=== PATIENT | female | born 1945 | race Caucasian/White ===

== ENCOUNTER 2016-09-06 18:54 | Emergency (ER) | payer MEDICARE ==
[2016-09-06] MEDS ORDERED: predniSONE 20 MG TAB ONE (19:40)
[2016-09-06] MEDS ORDERED: Benzonatate 100 MG CAP ONE (19:40)
[2016-09-06] MEDS ORDERED: AMOXicillin 250 MG CAP ONE (19:40)
--- NOTE | 2016-09-06 20:12 | ERRECORD ---
[facility] EMERGENCY RECORD HPI COUGH (19:45 LLDO) CHIEF COMPLAINT: Patient presents for evaluation of cough, non-productive, Patient presents for evaluation of cough, headache, scratchy throat. no fever. the headache is the worst of the pain. all started today, worsening as the day has progressed. HISTORIAN: History provided by patient, History provided by patient's spouse. LOCATION: Symptoms are generalized. QUALITY: Denies tightness, Denies wheezing, Pain is dull in nature, described as aching. SEVERITY: Maximum severity of symptoms severe, Currently symptoms are moderate. TIME COURSE: Sudden onset of symptoms, Symptoms are worsening, are constant. ASSOCIATED WITH: Associated symptoms reviewed, No associated chest pain, No associated chills, No associated diarrhea, No associated diaphoresis, Associated with dyspnea on exertion, No associated fever, Associated with nausea, Associated with pleuritic symptoms, No associated stridor, Associated with upper respiratory infection, No associated wheezing, Associated with weakness. EXACERBATED BY: Patient's condition exacerbated by deep breaths, Patient's condition exacerbated by exercise, Patient's condition exacerbated by lying flat, Patient's condition not exacerbated by smoking. RELIEVED BY: Patient's condition relieved by rest, Patient's condition relieved by upright position. ROS CONSTITUTIONAL: Negative constitutional review of systems, Historian reports fatigue, denies fever, reports malaise, reports weakness. (19:48 LLDO) EYES: Negative eye review of systems, Historian denies eye pain, denies eye redness, denies eye discharge. (19:54 LLDO) ENT: Historian reports sore throat. (19:48 LLDO) CARDIOVASCULAR: Historian reports dyspnea on exertion. (19:48 LLDO) RESPIRATORY: Historian reports cough, denies shortness of breath, denies sputum, denies stridor, denies wheezing. (19:48 LLDO) GI: Historian reports anorexia, reports appetite changes, reports nausea. (19:48 LLDO) GENITOURINARY FEMALE: Negative genitourinary review of systems, Historian denies dysuria, denies frequency, denies urgency. (19:54 LLDO) MUSCULOSKELETAL: Historian reports myalgias. (19:48 LLDO) SKIN: Negative skin review of systems, Historian denies cellulitis, denies rash, denies skin changes, denies skin lesions. (19:54 LLDO) NEUROLOGIC: Historian denies confusion, denies dizziness, denies &a-1R&a+25V*p+0X*[id number]*c202B*c15G*c2P*p-0X&a-25V&a+1R Name: Rachelle Flores : 1945 F70 MedRec: [id number] AcctNum: [id number] Prepared: Kay Sep 06, 2016 19:55 by Interface Page 1 of 4 pMD [facility] EMERGENCY RECORD dysphasia, denies focal weakness, denies gait changes, reports headache, denies irritability, denies lethargy, denies mental status changes. (19:48 LLDO) HEMO/LYMPHATIC: Normal hematologic/lymphatic system review, Historian denies abnormal blood clotting, denies gum bleeding, denies petechiae. (19:54 LLDO) ALLERGIC/IMMUNOLOGIC: Normal allergy/immunologic system review, Historian denies eczema, denies environmental allergies, denies food allergies. (19:54 LLDO) PSYCHIATRIC: Negative psychiatric review of systems, Historian denies alcohol abuse, denies anxiety, denies depression, denies drug abuse, denies hallucinations. (19:54 LLDO) NOTES: All systems reviewed, negative except as described above. (19:48 LLDO) PAST MEDICAL HISTORY MEDICAL HISTORY: No past medical history, Flu vaccine up to date, Pneumococcal vaccine up to date, Past medical history includes history of hyperlipidemia, history of hypertension. (19:06 SFRE) FEMALE SURGICAL HISTORY: multiple colon surgeries, hernias,, Surgical history of orthopedic surgery, right rotator cuff. (19:09 SFRE) PSYCHIATRIC HISTORY: No previous psychiatric history. (19:06 SFRE) SOCIAL HISTORY: Patient denies alcohol use, Patient denies drug use, Patient currently uses tobacco, smokes cigarettes. (19:06 SFRE) NOTES: Nursing records reviewed, Agree with nursing records, Medication list reviewed. (19:54 LLDO) KNOWN ALLERGIES Iodine (Unconfirmed) No Known Allergies CURRENT MEDICATIONS No recorded medications VITAL SIGNS (19:01 SFRE) VITAL SIGNS: BP: 148/75, Pulse: 79, Resp: 18, Temp: 98.8 (Tympanic), Pain: 9 (Intermittent), O2 sat: 97 on Room Air, Time: 09/06/2016 19:01. PHYSICAL EXAM CONSTITUTIONAL: Vital Signs Reviewed, Patient afebrile, Pulse normal, Blood pressure normal, Respiratory rate normal, Normal pulse oximetry, Patient appears, uncomfortable, Patient appears, in moderate pain distress, Patient alert and oriented to person, place and time, Nursing notes reviewed. (19:51 LLDO) &a-1R&a+25V*p+0X*[id number]*c202B*c15G*c2P*p-0X&a-25V&a+1R Name: Rachelle Flores : 1945 F70 MedRec: [id number] AcctNum: [id number] Prepared: Kay Sep 06, 2016 19:55 by Interface Page 2 of 4 pMD [facility] EMERGENCY RECORD HEAD: Head exam normal, Head exam included findings of head atraumatic, normocephalic. (19:54 LLDO) EYES: Eye exam normal, Eye exam included findings of eyelids normal to inspection, Pupils equally round and reactive to light, Extraocular muscles intact. (19:54 LLDO) ENT: Ear exam normal, Nose exam normal, Pharynx, injected bilaterally, with swelling bilaterally, symmetrical, Uvula exam normal, Sinus exam included findings of frontal sinuses normal, maxillary sinuses normal. (19:51 LLDO) NECK: Neck exam included findings of normal range of motion, Trachea midline, Thyroid normal, no meningeal signs, Cervical adenopathy, diffuse, multiple nodes, tender, swollen. (19:51 LLDO) RESPIRATORY CHEST: Respiratory exam included findings of no respiratory distress, No wheezing, Rales present, Chest exam included findings of chest movement symmetrical, Chest expansion equal, no tenderness, RALES MOD AND SCATTERED. (19:51 LLDO) CARDIOVASCULAR: Femoral pulses. (19:51 LLDO) ABDOMEN FEMALE: Abdominal exam normal, Abdominal exam included findings of abdomen nontender, Bowel sounds normal, no peritoneal signs. (19:54 LLDO) BACK: Back exam normal, Back exam included findings of normal inspection, range of motion normal. (19:54 LLDO) UPPER EXTREMITY: Upper extremity exam normal, Upper extremity exam included findings of inspection normal, Range of motion normal. (19:54 LLDO) LOWER EXTREMITY: Lower extremity exam normal, Lower extremity exam included findings of inspection normal, Range of motion normal. (19:54 LLDO) NEURO: [place] coma scale 15, Neuro exam findings include patient oriented to person, place and time, Speech normal, Gait normal, Memory normal, Cranial nerves intact, Deep tendon reflexes normal, no focal motor deficits, no focal sensory deficits, no cerebellar deficits, no nystagmus. (19:51 LLDO) SKIN: Skin exam normal, Skin exam included findings of skin warm, dry, and normal in color, no rash. (19:54 LLDO) PSYCHIATRIC: Psychiatric exam normal, Psychiatric exam included findings of patient oriented to person place and time, Normal affect. (19:54 LLDO) MEDICATION ADMINISTRATION SUMMARY Drug Name: *acetaminophen-codeine, Dose Ordered: 2 tab(s), Route: Oral, Status: Canceled, Time: 19:50 09/06/2016, Drug Name: Tessalon Perles, Dose Ordered: 200 mg, Route: Oral, Status: Given, Time: 19:44 09/06/2016, Drug Name: amoxicillin, Dose Ordered: 500 mg, Route: Oral, Status: Given, Time: 19:43 09/06/2016, Drug Name: predniSONE oral, Dose Ordered: 40 mg, Route: Oral, Status: Given, Time: 19:43 09/06/2016, *Additional information available in &a-1R&a+25V*p+0X*[id number]*c202B*c15G*c2P*p-0X&a-25V&a+1R Name: Rachelle Flores : 1945 F70 MedRec: [id number] AcctNum: [id number] Prepared: Kay Sep 06, 2016 19:55 by Interface Page 3 of 4 pMD [facility] EMERGENCY RECORD notes, Detailed record available in Medication Service section. PROBLEM LIST No recorded problems DIAGNOSIS (19:39 LLDO) FINAL: PRIMARY: Acute bronchitis. PRESCRIPTION predniSONE oral: TABLET : 20 mg : ORAL : Quantity: 1 Unit: tab(s) Route: ORAL Schedule: once a day (in the morning) Dispense: 6 May substitute. Refills: No Refills . (19:40 LLDO) NOTES: No Refills. (19:40 LLDO) amoxicillin: CAPSULE (HARD, SOFT, ETC.) : 500 mg : ORAL : Quantity: 1 Unit: cap(s) Route: ORAL Schedule: 3 times a day Dispense: 30 May substitute. Refills: No Refills . (19:40 LLDO) NOTES: ^s=No Refills No Refills. (19:40 LLDO) Phenergan DM: SYRUP : : ORAL : Quantity: 1 Unit: teaspoon Route: ORAL Schedule: every 4 hours prn Dispense: 180 Unit: mL May substitute. Refills: No Refills . (19:40 LLDO) NOTES: ^s=^s=No Refills No Refills No Refills. (19:40 LLDO) Tylenol-Codeine #3: TABLET : 300 mg-30 mg : ORAL : Quantity: 1-2 Unit: tab(s) Route: ORAL Schedule: every 4 hours prn Dispense: 24 Unit: tab(s) May substitute. Refills: No Refills . (19:43 LLDO) NOTES: No Refills. (19:43 LLDO) DISPOSITION PATIENT: Disposition Type: Discharge, Disposition: *Discharge Home. (19:39 LLDO) Patient left the department. (19:53 SFRE) Valles: LLDO=MD Jong, Juan José SFRE=LUIS Amezquita, Rossana &a-1R&a+25V*p+0X*[id number]*c202B*c15G*c2P*p-0X&a-25V&a+1R Name: Rachelle Flores : 1945 F70 MedRec: [id number] AcctNum: [id number] Prepared: Kay Sep 06, 2016 19:55 by Interface Page 4 of 4 pMD MTDD
--- NOTE | 2016-09-06 20:20 | PICIS ---
[facility] EMERGENCY RECORD TRIAGE ([place] Sep 06, 2016 19:04 SFRE) TRIAGE NOTES: COUGH WITH HEADACHE FROM COUGHING. ([place] Sep 06, 2016 19:04 SFRE) PATIENT: NAME: Rachelle Flores, AGE: 70, GENDER: female, : Wed1945, TIME OF GREET: WedSep 06, 2016 18:56, PREFERRED LANGUAGE: Guatemalan, ETHNICITY: Not or , ECODE BILLING MAP: [facility], SSN: [id number], Zip Code: [address], KG WEIGHT: 92.08, PHONE: , , , PERSON ID: [id number], PCP: BRYAN LAWRENCE. ([place] Sep 06, 2016 19:04 SFRE) COMPLAINT: COUGH,HEADACHE. ([place] Sep 06, 2016 19:04 SFRE) ADMISSION: URGENCY: 5 Fast Track, ADMISSION SOURCE: Home, TRANSPORT: Walk-in, BED: ED -04. ([place] Sep 06, 2016 19:04 SFRE) SIRS SCORING: Heart Rate 55-109 (0), Temp range 96.8-101.1 (0), respiratory rate 12-24 (0), Mental Status altered: no (0). (19:06 SFRE) TRIAGE SCREENING: Patient denies suicidal ideation, Patient denies presence of domestic violence. (19:06 SFRE) PROVIDERS: TRIAGE NURSE: Rossana Amezquita RN. ([place] Sep 06, 2016 19:04 SFRE) VITAL SIGNS: BP 148/75, Pulse 79, Resp 18, Temp 98.8, (Tympanic), Pain 9, (Intermittent), O2 Sat 97, on Room Air, Time 09/06/2016 19:01. (19:01 SFRE) PREVIOUS VISIT ALLERGIES: No Known Allergies. ([place] Sep 06, 2016 19:04 SFRE) No Known Allergies. (19:06 SFRE) KNOWN ALLERGIES Iodine (Unconfirmed) No Known Allergies CURRENT MEDICATIONS No recorded medications VITAL SIGNS (19:01 SFRE) VITAL SIGNS: BP: 148/75, Pulse: 79, Resp: 18, Temp: 98.8 (Tympanic), Pain: 9 (Intermittent), O2 sat: 97 on Room Air, Time: 09/06/2016 19:01. NURSING ASSESSMENT: ENT (19:16 SFRE) CONSTITUTIONAL: Patient arrives ambulatory, Gait steady, History obtained from patient, Patient appears comfortable, Patient cooperative, Patient alert, Oriented to person, place and time, Skin warm, Skin dry, Skin normal in color, Mucous membranes pink, Mucous membranes moist, Patient is well-groomed, Patient complains of cough. PAIN: aching pain, head, constant, on a scale 0-10 patient rates pain as 9, reports she did not take anything for kline because she knew it was caused by her cough, Pain exacerbated by nothing, Nothing has been tried to alleviate the pain. &a-1R&a+25V*p+0X*p4038Q*c202B*c15G*c2P*p-0X&a-25V&a+1R Name: Rachelle Flores : 1945 F70 MedRec: [id number] AcctNum: [id number] Prepared: Kay Sep 06, 2016 20:01 by Interface Page 1 of 7 pMD [facility] EMERGENCY RECORD ENT: Mouth and throat assessment findings include mouth inspection normal, Uvula normal, Tonsils normal, Mucous membranes pink, and moist, Able to swallow, Speech normal. RESPIRATORY/CHEST: Associated with cough, non-productive. SAFETY: Side rails up, Cart/Stretcher in lowest position, Family at bedside, Call light within reach, Hospital ID band on. NURSING PROCEDURE: DISCHARGE NOTE (19:51 SFRE) DISCHARGE: Patient discharged to home, ambulating without assistance, driving self, accompanied by //partner, Summary of Care printed/ provided, Patient requested and was provided an electronic copy of Discharge Instructions, Discharge instructions given to patient, Simple or moderate discharge teaching performed, by LUIS VANESSA, F/U WITH PCP. RX DIRECTED. RETURN TO ED NEEDED FOR NEW/CONCERNING OR WORSENING SYMPTOMS., Prescriptions given and instructions on side effects given, Name of prescription(s) given: PREDNISONE, AMOXICILLIN, PHENERGAN SYRUP, Above person(s) verbalized understanding of discharge instructions and follow-up care. NURSING PROCEDURE: NURSE NOTES (19:30 SFRE) NURSES NOTES: Patient examined by physician. MEDICATION ADMINISTRATION SUMMARY Drug Name: *acetaminophen-codeine, Dose Ordered: 2 tab(s), Route: Oral, Status: Canceled, Time: 19:50 09/06/2016, Drug Name: Huyen Goddard, Dose Ordered: 200 mg, Route: Oral, Status: Given, Time: 19:44 09/06/2016, Drug Name: amoxicillin, Dose Ordered: 500 mg, Route: Oral, Status: Given, Time: 19:43 09/06/2016, Drug Name: predniSONE oral, Dose Ordered: 40 mg, Route: Oral, Status: Given, Time: 19:43 09/06/2016, *Additional information available in notes, Detailed record available in Medication Service section. MEDICATION SERVICE amoxicillin: Order: amoxicillin (amoxicillin trihydrate) - Dose: 500 mg : Oral Schedule: Now Ordered by: Juan José Sunshine MD Entered by: MD Kay Galloway Sep 06, 2016 19:36 , Acknowledged by: LUIS Duran Sep 06, 2016 19:39 Documented as given by: LUIS Duran Sep 06, 2016 19:43 Patient, Medication, Dose, Route and Time verified prior to administration. Amount given: 500mg, Site: Medication administered P.O., Correct patient, time, route, dose and medication confirmed prior to administration, Patient advised of actions and side-effects prior to administration, Allergies confirmed and medications reviewed prior to &a-1R&a+25V*p+0X*k3175C*c202B*c15G*c2P*p-0X&a-25V&a+1R Name: Rachelle lFores : 1945 F70 MedRec: [id number] AcctNum: [id number] Prepared: Kay Sep 06, 2016 20:01 by Interface Page 2 of 7 pMD [facility] EMERGENCY RECORD administration, Patient in position of comfort, Side rails up, Cart in lowest position, Family at bedside. predniSONE oral: Order: predniSONE oral (prednisone) - Dose: 40 mg : Oral Schedule: Now Ordered by: Juan José Sunshine MD Entered by: MD Kay Galloway Sep 06, 2016 19:37 , Acknowledged by: LUIS Duran Sep 06, 2016 19:39 Documented as given by: LUIS Duran Sep 06, 2016 19:43 Patient, Medication, Dose, Route and Time verified prior to administration. Amount given: 40mg, Site: Medication administered P.O., Correct patient, time, route, dose and medication confirmed prior to administration, Patient advised of actions and side-effects prior to administration, Allergies confirmed and medications reviewed prior to administration, Patient in position of comfort, Side rails up, Cart in lowest position, Family at bedside. Tessalon Perles: Order: Tessalon Perles (benzonatate) - Dose: 200 mg : Oral Schedule: Now Ordered by: Juan José Sunshine MD Entered by: Juan José Sunshine MD [place] Sep 06, 2016 19:36 , Acknowledged by: Rossana Amezquita RN [place] Sep 06, 2016 19:39 Documented as given by: Rossana Amezquita RN [place] Sep 06, 2016 19:44 Patient, Medication, Dose, Route and Time verified prior to administration. Amount given: 200mg, Site: Medication administered P.O., Correct patient, time, route, dose and medication confirmed prior to administration, Patient advised of actions and side-effects prior to administration, Allergies confirmed and medications reviewed prior to administration, Patient in position of comfort, Side rails up, Cart in lowest position, Family at bedside. (CANCELED) acetaminophen-codeine: Order: acetaminophen-codeine (acetaminophen/codeine phosphate) - Dose: 2 tab(s) : Oral Schedule: Now Notes: each tab 30-300 Ordered by: Juan José Sunshine MD Entered by: Juan José Sunshine MD [place] Sep 06, 2016 19:42 Canceled by: Rossana Amezquita RN. [place] Sep 06, 2016 19:50 Cancel reason: DC'D HOME BEFORE RX WAS SEEN. HPI COUGH (19:45 LLDO) CHIEF COMPLAINT: Patient presents for evaluation of cough, non-productive, Patient presents for evaluation of cough, headache, scratchy throat. no fever. the headache is the worst of the pain. all started today, worsening as the day has progressed. HISTORIAN: History provided by patient, History provided by patient's spouse. LOCATION: Symptoms are generalized. QUALITY: Denies tightness, Denies wheezing, Pain is dull in nature, &a-1R&a+25V*p+0X*r4340G*c202B*c15G*c2P*p-0X&a-25V&a+1R Name: Rachelle Flores: 1945 F70 MedRec: [id number] AcctNum: [id number] Prepared: Kay Sep 06, 2016 20:01 by Interface Page 3 of 7 pMD [facility] EMERGENCY RECORD described as aching. SEVERITY: Maximum severity of symptoms severe, Currently symptoms are moderate. TIME COURSE: Sudden onset of symptoms, Symptoms are worsening, are constant. ASSOCIATED WITH: Associated symptoms reviewed, No associated chest pain, No associated chills, No associated diarrhea, No associated diaphoresis, Associated with dyspnea on exertion, No associated fever, Associated with nausea, Associated with pleuritic symptoms, No associated stridor, Associated with upper respiratory infection, No associated wheezing, Associated with weakness. EXACERBATED BY: Patient's condition exacerbated by deep breaths, Patient's condition exacerbated by exercise, Patient's condition exacerbated by lying flat, Patient's condition not exacerbated by smoking. RELIEVED BY: Patient's condition relieved by rest, Patient's condition relieved by upright position. ROS CONSTITUTIONAL: Negative constitutional review of systems, Historian reports fatigue, denies fever, reports malaise, reports weakness. (19:48 LLDO) EYES: Negative eye review of systems, Historian denies eye pain, denies eye redness, denies eye discharge. (19:54 LLDO) ENT: Historian reports sore throat. (19:48 LLDO) CARDIOVASCULAR: Historian reports dyspnea on exertion. (19:48 LLDO) RESPIRATORY: Historian reports cough, denies shortness of breath, denies sputum, denies stridor, denies wheezing. (19:48 LLDO) GI: Historian reports anorexia, reports appetite changes, reports nausea. (19:48 LLDO) GENITOURINARY FEMALE: Negative genitourinary review of systems, Historian denies dysuria, denies frequency, denies urgency. (19:54 LLDO) MUSCULOSKELETAL: Historian reports myalgias. (19:48 LLDO) SKIN: Negative skin review of systems, Historian denies cellulitis, denies rash, denies skin changes, denies skin lesions. (19:54 LLDO) NEUROLOGIC: Historian denies confusion, denies dizziness, denies dysphasia, denies focal weakness, denies gait changes, reports headache, denies irritability, denies lethargy, denies mental status changes. (19:48 LLDO) HEMO/LYMPHATIC: Normal hematologic/lymphatic system review, Historian denies abnormal blood clotting, denies gum bleeding, denies petechiae. (19:54 LLDO) ALLERGIC/IMMUNOLOGIC: Normal allergy/immunologic system review, Historian denies eczema, denies environmental allergies, denies food allergies. (19:54 LLDO) &a-1R&a+25V*p+0X*g6262C*c202B*c15G*c2P*p-0X&a-25V&a+1R Name: Rachelle Flores : 1945 F70 MedRec: [id number] AcctNum: [id number] Prepared: Kay Sep 06, 2016 20:01 by Interface Page 4 of 7 pMD [facility] EMERGENCY RECORD PSYCHIATRIC: Negative psychiatric review of systems, Historian denies alcohol abuse, denies anxiety, denies depression, denies drug abuse, denies hallucinations. (19:54 LLDO) NOTES: All systems reviewed, negative except as described above. (19:48 LLDO) PAST MEDICAL HISTORY MEDICAL HISTORY: No past medical history, Flu vaccine up to date, Pneumococcal vaccine up to date, Past medical history includes history of hyperlipidemia, history of hypertension. (19:06 SFRE) FEMALE SURGICAL HISTORY: multiple colon surgeries, hernias,, Surgical history of orthopedic surgery, right rotator cuff. (19:09 SFRE) PSYCHIATRIC HISTORY: No previous psychiatric history. (19:06 SFRE) SOCIAL HISTORY: Patient denies alcohol use, Patient denies drug use, Patient currently uses tobacco, smokes cigarettes. (19:06 SFRE) NOTES: Nursing records reviewed, Agree with nursing records, Medication list reviewed. (19:54 LLDO) PHYSICAL EXAM CONSTITUTIONAL: Vital Signs Reviewed, Patient afebrile, Pulse normal, Blood pressure normal, Respiratory rate normal, Normal pulse oximetry, Patient appears, uncomfortable, Patient appears, in moderate pain distress, Patient alert and oriented to person, place and time, Nursing notes reviewed. (19:51 LLDO) HEAD: Head exam normal, Head exam included findings of head atraumatic, normocephalic. (19:54 LLDO) EYES: Eye exam normal, Eye exam included findings of eyelids normal to inspection, Pupils equally round and reactive to light, Extraocular muscles intact. (19:54 LLDO) ENT: Ear exam normal, Nose exam normal, Pharynx, injected bilaterally, with swelling bilaterally, symmetrical, Uvula exam normal, Sinus exam included findings of frontal sinuses normal, maxillary sinuses normal. (19:51 LLDO) NECK: Neck exam included findings of normal range of motion, Trachea midline, Thyroid normal, no meningeal signs, Cervical adenopathy, diffuse, multiple nodes, tender, swollen. (19:51 LLDO) RESPIRATORY CHEST: Respiratory exam included findings of no respiratory distress, No wheezing, Rales present, Chest exam included findings of chest movement symmetrical, Chest expansion equal, no tenderness, RALES MOD AND SCATTERED. (19:51 LLDO) CARDIOVASCULAR: Femoral pulses. (19:51 LLDO) ABDOMEN FEMALE: Abdominal exam normal, Abdominal exam included findings of abdomen nontender, Bowel sounds normal, no peritoneal signs. (19:54 LLDO) &a-1R&a+25V*p+0X*k8694C*c202B*c15G*c2P*p-0X&a-25V&a+1R Name: Rachelle Flores : 1945 F70 MedRec: [id number] AcctNum: [id number] Prepared: Kay Sep 06, 2016 20:01 by Interface Page 5 of 7 pMD [facility] EMERGENCY RECORD BACK: Back exam normal, Back exam included findings of normal inspection, range of motion normal. (19:54 LLDO) UPPER EXTREMITY: Upper extremity exam normal, Upper extremity exam included findings of inspection normal, Range of motion normal. (19:54 LLDO) LOWER EXTREMITY: Lower extremity exam normal, Lower extremity exam included findings of inspection normal, Range of motion normal. (19:54 LLDO) NEURO: [place] coma scale 15, Neuro exam findings include patient oriented to person, place and time, Speech normal, Gait normal, Memory normal, Cranial nerves intact, Deep tendon reflexes normal, no focal motor deficits, no focal sensory deficits, no cerebellar deficits, no nystagmus. (19:51 LLDO) SKIN: Skin exam normal, Skin exam included findings of skin warm, dry, and normal in color, no rash. (19:54 LLDO) PSYCHIATRIC: Psychiatric exam normal, Psychiatric exam included findings of patient oriented to person place and time, Normal affect. (19:54 LLDO) EVENTS TRANSFER: Triage to Emergency Main ED -04. ([place] Sep 06, 2016 19:04 SFRE) Removed from Emergency Main ED -04. (19:53 SFRE) PROBLEM LIST No recorded problems DIAGNOSIS (19:39 LLDO) FINAL: PRIMARY: Acute bronchitis. DISPOSITION PATIENT: Disposition Type: Discharge, Disposition: *Discharge Home. (19:39 LLDO) Patient left the department. (19:53 SFRE) INSTRUCTION (19:41 LLDO) DISCHARGE: BRONCHITIS, ABX TX (ADULT). FOLLOWUP: Follow up with Primary Care Physician in 7-10 days. SPECIAL: Follow-up with your PCP. PRESCRIPTION predniSONE oral: TABLET : 20 mg : ORAL : Quantity: 1 Unit: tab(s) Route: ORAL Schedule: once a day (in the morning) Dispense: 6 May substitute. Refills: No Refills . (19:40 LLDO) NOTES: No Refills. (19:40 LLDO) amoxicillin: CAPSULE (HARD, SOFT, ETC.) : 500 mg : ORAL : Quantity: 1 Unit: cap(s) Route: ORAL Schedule: 3 times a day Dispense: 30 May substitute. Refills: No Refills . (19:40 LLDO) &a-1R&a+25V*p+0X*p9247M*c202B*c15G*c2P*p-0X&a-25V&a+1R Name: Rachelle Flores : 1945 F70 MedRec: [id number] AcctNum: [id number] Prepared: Kay Sep 06, 2016 20:01 by Interface Page 6 of 7 pMD [facility] EMERGENCY RECORD NOTES: ^s=No Refills No Refills. (19:40 LLDO) Phenergan DM: SYRUP : : ORAL : Quantity: 1 Unit: teaspoon Route: ORAL Schedule: every 4 hours prn Dispense: 180 Unit: mL May substitute. Refills: No Refills . (19:40 LLDO) NOTES: ^s=^s=No Refills No Refills No Refills. (19:40 LLDO) Tylenol-Codeine #3: TABLET : 300 mg-30 mg : ORAL : Quantity: 1-2 Unit: tab(s) Route: ORAL Schedule: every 4 hours prn Dispense: 24 Unit: tab(s) May substitute. Refills: No Refills . (19:43 LLDO) NOTES: No Refills. (19:43 LLDO) IMAGING (19:52 SFRE) *DISCHARGE INSTRUCTIONS RECEIPT: Image captured from scanner. *SUPPLY CHARGE SHEET: Image captured from scanner. ADMIN (19:54 LLDO) DIGITAL SIGNATURE: MD Sunshine Lloyd. Valles: LLDO=MD Sunshine Lloyd SFRE=LUIS Amezquita, Rossana &a-1R&a+25V*p+0X*j1098S*c202B*c15G*c2P*p-0X&a-25V&a+1R Name: Rachelle Flores : 1945 F70 MedRec: [id number] AcctNum: [id number] Prepared: Kay Sep 06, 2016 20:01 by Interface Page 7 of 7 pMD [facility] MEDICATION RECONCILIATION You were seen in the Emergency Department on: Kay Sep 06, 2016 KNOWN ALLERGIES Iodine (Unconfirmed) No Known Allergies MEDICATIONS GIVEN WHILE IN THE EMERGENCY DEPARTMENT amoxicillin (amoxicillin trihydrate) - Dose: 500 milligram(s) : Oral Tessalon Perles (benzonatate) - Dose: 200 milligram(s) : Oral predniSONE oral (prednisone) - Dose: 40 milligram(s) : Oral Notes from the emergency department Reviewed with family Reviewed with patient Reviewed with family Reviewed with patient PRESCRIPTIONS (4) Printed (4) predniSONE oral : TABLET : 20 mg : ORAL Quantity: 1, Unit: tab(s), Route: ORAL, Schedule: once a day (in the morning), Dispense: 6 amoxicillin : CAPSULE (HARD, SOFT, ETC.) : 500 mg : ORAL Quantity: 1, Unit: cap(s), Route: ORAL, Schedule: 3 times a day, Dispense: 30 Phenergan DM : SYRUP : : ORAL Quantity: 1, Unit: teaspoon, Route: ORAL, Schedule: every 4 hours prn, Dispense: 180 Unit: milliliter(s) &a-1R&a+25V*p+0X*u7224N*c202B*c15G*c2P*p-0X&a-25V&a+1R Name: Rachelle Flores : 1945 F70 MedRec: [id number] AcctNum: [id number] Prepared: Kay Sep 06, 2016 20:01 by Interface pMD MTDD
== END 2016-09-06 19:51 | disposition home or self-care (01) ==
LOC: MADERS 18:54
DX: J20.9 Acute bronchitis, unspecified (principal); E78.5 Hyperlipidemia, unspecified; I10 Essential (primary) hypertension; F17.210 Nicotine dependence, cigarettes, uncomplicated; Z98.890 Other specified postprocedural states
CPT/HCPCS: 99283; J7506

== ENCOUNTER 2021-12-27 17:54 | Emergency (ER) | payer MEDICARE ==
[~2021-12-27 17:54] MED LIST: Iopamidol 370 76% 125 ML VIAL FS ONE; Sodium Chloride 0.9% 100 ML BAG ONE
[2021-12-27 18:13] LABS: #Basophils 0.1 thou/uL (0.0-0.2); #Eosinphils 0.2 thou/uL (0.0-0.7); #Lymphocytes 3.3 thou/uL (1.20-3.40); #Monocytes 0.7 thou/uL (0.11-0.59); %Basophils 1.3 % (0.0-1.0); %Eosinophils 2.7 % (0.0-10.0); %Lymphocytes 39.4 % (21.0-51.0); %Monocytes 8.5 % (0.0-10.0); %Neutrophils 48.1 % (42.0-75.0); Hemoglobin 13.3 g/dL (12.0-16.0); Mean Corpuscular HGB CONC 32.6 g/dL (32.0-36.0); Mean Corpuscular Hemoglobin 29.9 pg (27.0-31.0); Mean Corpuscular Volume 91.8 fL (78.0-98.0); Platelet Count 226 thou/uL (130-400); RBC Distribution Width 12.6 % (11.5-14.5); Red Blood Cell (RBC) Count 4.46 mill/uL (4.20-5.40); White Blood Cell (WBC) Count 8.3 thou/uL (4.8-10.8)
[2021-12-27 18:30] LABS: ALT (SGPT) 13 U/L (8-55); AST (SGOT) 15 U/L (5-34); Alkaline Phosphatase 72 U/L (40-110); Anion Gap 15 mmol/L (10-20); BUN (Urea Nitrogen) 15 mg/dL (9.8-20.1); Bilirubin, Total 0.3 mg/dL (0.2-1.2); Calc. Creatinine Clearance 0 mL/min (70-130); Carbon Dioxide 23 mmol/L (23-31); Chloride 108 mmol/L (98-107); Globulin 2.7 g/dL (2.4-3.5); Glucose 93 mg/dL (83-110); Potassium 4.1 mmol/L (3.5-5.1); Protein, Total 6.7 g/dL (5.8-8.1); Sodium 142 mmol/L (136-145)
== END 2021-12-27 20:01 | disposition short-term general hospital (02) ==
LOC: MADERS 17:54
DX: H53.2 Diplopia (principal); G45.3 Amaurosis fugax; I48.91 Unspecified atrial fibrillation; E78.5 Hyperlipidemia, unspecified; I10 Essential (primary) hypertension; F17.210 Nicotine dependence, cigarettes, uncomplicated; Z79.01 Long term (current) use of anticoagulants; Z79.82 Long term (current) use of aspirin; Z79.899 Other long term (current) drug therapy
CPT/HCPCS: 70450; 70496; 70498; 80053; 84484; 85025; 93005; Q9967

== ENCOUNTER 2022-03-03 08:17 | Outpatient (CLI) | payer MEDICARE ==
[2022-03-03 09:10] LABS: #Basophils 0.1 thou/uL (0.0-0.2); #Eosinphils 0.2 thou/uL (0.0-0.7); #Lymphocytes 1.7 thou/uL (1.20-3.40); #Monocytes 0.6 thou/uL (0.11-0.59); #Neutrophils 3.9 thou/uL (1.40-6.50); %Basophils 1.2 % (0.0-1.0); %Eosinophils 2.9 % (0.0-10.0); %Lymphocytes 26.1 % (21.0-51.0); %Monocytes 8.6 % (0.0-10.0); %Neutrophils 61.1 % (42.0-75.0); Hemoglobin 13.5 g/dL (12.0-16.0); INR-International Normal Ratio 1.2; Mean Corpuscular HGB CONC 31.5 g/dL (32.0-36.0); Mean Corpuscular Volume 91.9 fL (78.0-98.0); Mean Platelet Volume 8.8 fL (7.4-10.4); Platelet Count 237 thou/uL (130-400); Prothrombin Time 15.8 sec (12.0-14.7); RBC Distribution Width 13.3 % (11.5-14.5); Red Blood Cell (RBC) Count 4.66 mill/uL (4.20-5.40); White Blood Cell (WBC) Count 6.4 thou/uL (4.8-10.8)
[2022-03-03 09:12] LABS: PTT 34.8 sec (22.9-36.1)
== END 2022-03-03 08:18 | disposition home or self-care (01) ==
LOC: MADLAB 08:17
PROVIDERS: ATTEND Nurse Practitioner
DX: I48.0 Paroxysmal atrial fibrillation (principal); Z20.822 Contact with and (suspected) exposure to COVID-19
CPT/HCPCS: 36415; 85025; 85610; 85730; U0003; U0005